=== PATIENT | male | born 1990 | race American Indian/Alaskan Native ===

== ENCOUNTER 2020-06-13 00:05 | Emergency (ER) | payer SELFPAY | END 2020-06-13 00:30 | disposition left against medical advice (07) | LOC: ED 00:05 | DX: Z00.8 Encounter for other general examination (principal); Z53.21 Procedure and treatment not carried out due to patient leaving prior to being seen by health care provider ==

== ENCOUNTER 2020-09-26 23:38 | Emergency (ER) | payer SELFPAY ==
[2020-09-27] MEDS ORDERED: IPRATROPIUM 0.02% NEBU 2.5 ML IH ONE (01:04)
[2020-09-27] MEDS ORDERED: predniSONE 20 MG TAB PO ONE (01:04)
[2020-09-27] MEDS ORDERED: ALBUTEROL 2.5 MG/3 ML NEBU IH ONE (01:04)
[2020-09-27 01:06] VITALS: BP 145/77
--- NOTE | 2020-09-27 01:25 | Emergency Department Report ---
ED Shortness of Breath HPI - General Chief Complaint: Dyspnea/Respdistress Stated Complaint: ROYAL;ASTHMA Source: patient Mode of arrival: Ambulatory Limitations: No Limitations - History of Present Illness Initial Comments: Patient is a 29-year-old -[place] male with a history of asthma who presents to the ED with acute onset persistent shortness of breath for the last 6 hours, worse in the last 2 hours. Patient states that he was already at the airport about [place] when he started having shortness of breath because of asthma but did not have his inhaler him on hand since all his bronchodilators were already in his checked in luggage and therefore could not go to retrieve them. Patient states that he was then brought to the ED via EMS for evaluation bronchodilator treatment. Patient states that his current symptoms are typical of his chronic asthma attacks. Patient denies chest pain, dizziness, syncope, fever, chills, cough, abdominal pain, nausea and vomiting, sore throat, nasal and sinus congestion or headache. MD Complaint: shortness of breath, cough, "asthma attack" -: Sudden, hour(s) (6) Severity: moderate Pain Scale: 4 Quality: dull, other (Chest tightness) Consistency: intermittent Improves With: bronchodilators Worsens With: nothing Known History Of: asthma Context: allergen exposure Associated Symptoms: cough Treatments Prior to Arrival: none - Related Data Home Oxygen Therapy: No Previous Rx's Medication Instructions Recorded Last Taken Type ALBUTEROL NEB's [Proventil 0.083% 3 ml IH TID PRN #75 ml 09/27/20 Unknown Rx NEBS] Albuterol Sulfate [Proventil Hfa] 1 - 2 puff IH Q6H PRN #1 hfa.aer.ad 09/27/20 Unknown Rx Prednisone [predniSONE 10 mg 10 mg PO .TAPER #21 tab.ds.pk 09/27/20 Unknown Rx (6-Day Pack, 21 Tabs)] Allergies Allergy/AdvReac Type Severity Reaction Status Date / Time No Known Allergies Allergy Verified 09/27/20 01:06 ED Review of Systems ROS: Stated complaint: ROYAL;ASTHMA Other details as noted in HPI Constitutional: denies: chills, fever Eyes: denies: eye pain, eye discharge, vision change ENT: denies: ear pain, throat pain Respiratory: cough, shortness of breath, wheezing Cardiovascular: chest pain (Chest tightness). denies: palpitations Endocrine: no symptoms reported Gastrointestinal: denies: abdominal pain, nausea, diarrhea Genitourinary: denies: urgency, dysuria Musculoskeletal: denies: back pain, joint swelling, arthralgia Skin: denies: rash, lesions Neurological: denies: headache, weakness, paresthesias Psychiatric: denies: anxiety, depression Hematological/Lymphatic: denies: easy bleeding, easy bruising ED Past Medical Hx - Past Medical History Previous Medical History?: Yes Hx Asthma: Yes - Surgical History Past Surgical History?: No - Medications Home Medications: Home Medications Medication Instructions Recorded Confirmed Last Taken Type ALBUTEROL NEB's [Proventil 0.083% 3 ml IH TID PRN #75 ml 09/27/20 Unknown Rx NEBS] Albuterol Sulfate [Proventil Hfa] 1 - 2 puff IH Q6H PRN #1 hfa.aer.ad 09/27/20 Unknown Rx Prednisone [predniSONE 10 mg 10 mg PO .TAPER #21 tab.ds.pk 09/27/20 Unknown Rx (6-Day Pack, 21 Tabs)] ED Physical Exam - General Limitations: No Limitations General appearance: alert, in no apparent distress - Head Head exam: Present: atraumatic, normocephalic, normal inspection - Eye Eye exam: Present: normal appearance, PERRL Pupils: Present: normal accommodation - ENT ENT exam: Present: normal exam, normal orophraynx, mucous membranes moist, TM's normal bilaterally, normal external ear exam - Neck Neck exam: Present: normal inspection, full ROM - Respiratory Respiratory exam: Present: wheezes (Mildly diffuse coarse wheezes throughout). Absent: respiratory distress, rales, rhonchi, stridor, chest wall tenderness, accessory muscle use, decreased breath sounds, prolonged expiratory - Cardiovascular Cardiovascular Exam: Present: regular rate, normal rhythm, normal heart sounds. Absent: systolic murmur, diastolic murmur, rubs, gallop - GI/Abdominal GI/Abdominal exam: Present: soft, normal bowel sounds. Absent: tenderness, guarding, hyperactive bowel sounds, hypoactive bowel sounds, organomegaly - Rectal Rectal exam: Present: deferred - Extremities Exam Extremities exam: Present: normal inspection, full ROM, normal capillary refill. Absent: pedal edema, calf tenderness - Back Exam Back exam: Present: normal inspection, full ROM. Absent: tenderness, CVA tenderness (R), CVA tenderness (L), muscle spasm, paraspinal tenderness - Neurological Exam Neurological exam: Present: alert, oriented X3, CN II-XII intact, normal gait, reflexes normal - Psychiatric Psychiatric exam: Present: normal affect, normal mood - Skin Skin exam: Present: warm, dry, intact, normal color. Absent: rash ED Course Vital Signs 09/27/20 01:02 Temperature 97.8 F Pulse Rate 79 Respiratory 17 Rate Blood Pressure 145/77 O2 Sat by Pulse 98 Oximetry ED Medical Decision Making - Medical Decision Making This is a 29-year-old -[place] male with a history of asthma who presents to the ED with acute onset persistent shortness of breath for the last 6 hours, worse in the last 2 hours. Patient states that he was already at the airport about to travel when he started having shortness of breath because of asthma but did not have his inhaler him on hand since all his bronchodilators were already in his checked in luggage and therefore could not go to retrieve them. Patient states that he was then brought to the ED via EMS for evaluation bronchodilator treatment. Patient states that his current symptoms are typical of his chronic asthma attacks. In the ED, patient is alert and oriented x3 and is not in any distress. Patient was treated in the ED with DuoNeb and also given prednisone 60 mg p.o. x1 in the ED. On reevaluation, patient's wheezing resolved with medication, patient's oxygen saturation after the nebulizer treatment was 99% in room air. Patient was therefore discharged home on prescriptions of prednisone and albuterol inhaler and was advised to return to the ED immediately if symptoms get worse, otherwise follow-up with his primary care physician in 5 to 7 days for reevaluation. - Differential Diagnosis Asthma; bronchitis; URI; allergic rhinitis Critical care attestation.: If time is entered above; I have spent that time in minutes in the direct care of this critically ill patient, excluding procedure time. ED Disposition Clinical Impression: Acute bronchitis with asthma with acute exacerbation, Shortness of breath Disposition: TO HOME OR SELFCARE Is pt being admited?: No Does the pt Need Aspirin: No Condition: Stable Instructions: Shortness of Breath, Adult, [id number], Cough, Adult, [id number], Acute Bronchitis, Adult, [id number], Asthma, Adult, [id number], Acute Bronchitis (ED) Additional Instructions: Take medication as advised, plenty of fluids and follow-up with your primary care physician in 3 to 5 days for reevaluation. Return to the ED immediately if symptoms get worse. Prescriptions: Prednisone [predniSONE 10 mg (6-Day Pack, 21 Tabs)] 10 mg PO .TAPER #21 tab.ds.pk ALBUTEROL NEB's [Proventil 0.083% NEBS] 3 ml IH TID PRN #75 ml PRN Reason: Wheezing Albuterol Sulfate [Proventil Hfa] 1 - 2 puff IH Q6H PRN #1 hfa.aer.ad PRN Reason: Wheezing Referrals: [facility] [Provider Group] - 3-5 Days Time of Disposition: 01:23 Print Language: VENEZUELAN
== END 2020-09-27 01:37 | disposition home or self-care (01) ==
LOC: ED 23:38
DX: J20.9 Acute bronchitis, unspecified (principal); R06.02 Shortness of breath; Z79.899 Other long term (current) drug therapy
CPT/HCPCS: 94640; 99282; J7512

== ENCOUNTER 2021-05-04 11:27 | Emergency (ER) | payer SELFPAY ==
--- NOTE | 2021-05-04 11:52 | Emergency Department Report ---
HPI - General Chief Complaint: Adult Asthma Time Seen by Provider: 05/04/21 11:43 - HPI HPI: 30-year-old -[place] male presents to the emergency department for a medication refill. The patient ran out of his asthma medications including Proventil and albuterol nebulizer meds. He admits to some occasional shortness of breath and wheezing. The patient just came here after going to the gym. He denies any fever, chest pain, lower extremity swelling. He does not have a primary care physician. He denies tobacco or any illicit drug use. ED Past Medical Hx - Past Medical History Hx Asthma: Yes - Medications Home Medications: Home Medications Medication Instructions Recorded Confirmed Last Taken Type Prednisone [predniSONE 10 mg 10 mg PO .TAPER #21 tab.ds.pk 09/27/20 Unknown Rx (6-Day Pack, 21 Tabs)] ALBUTEROL NEB's [Proventil 0.083% 3 ml IH TID PRN #1 box 05/04/21 Unknown Rx NEBS] Albuterol Sulfate [Proventil Hfa] 1 - 2 puff IH Q6H PRN #1 hfa.aer.ad 05/04/21 Unknown Rx predniSONE [Deltasone] 20 mg PO QDAY #3 tab 05/04/21 Unknown Rx ED Review of Systems ROS: Stated complaint: ASTHMA FLAIR Other details as noted in HPI Comment: All other systems reviewed and negative Constitutional: denies: chills, fever Respiratory: shortness of breath (Intermittent), wheezing Cardiovascular: denies: chest pain, palpitations Gastrointestinal: denies: abdominal pain, vomiting Musculoskeletal: denies: back pain, arthralgia Physical Exam - Physical Exam Physical Exam: GENERAL: The patient is well-developed well-nourished. HENT: Normocephalic. Atraumatic. Patient has moist mucous membranes. EYES: Extraocular motions are intact. NECK: Supple. Trachea is midline. CHEST/LUNGS: Clear to auscultation. Mild expiratory wheezing. No tachypnea or accessory muscle use. HEART/CARDIOVASCULAR: Regular. There is no tachycardia. There is no murmur. ABDOMEN: Abdomen is soft, nontender. Patient has normal bowel sounds. SKIN: Skin is warm and dry. NEURO: The patient is awake, alert, and oriented. The patient is cooperative. Normal speech. MUSCULOSKELETAL: There is no tenderness or deformity. ED Medical Decision Making - Medical Decision Making This patient presents for a medication refill of his albuterol inhaler nebulizer treatments. He also asked for a course of steroids. He has some mild expiratory wheezing but otherwise does not appear in any respiratory or acute distress. Vital signs reassuring including being afebrile. The patient has been given the requested prescriptions and instructed follow-up with primary care. Critical Care Time: No Critical care attestation.: If time is entered above; I have spent that time in minutes in the direct care of this critically ill patient, excluding procedure time. ED Disposition Clinical Impression: Medication refill Asthma Qualifiers: Asthma severity: unspecified severity Asthma persistence: unspecified Asthma complication type: unspecified Qualified Code(s): J45.909 - Unspecified asthma, uncomplicated Disposition: HOME / SELF CARE / HOMELESS Is pt being admited?: No Condition: Stable Instructions: Asthma, Adult, Asthma (ED) Additional Instructions: Please follow-up with a primary care physician in the next few days. I have given you a referral for a local primary care physician, Dr. Garcia, and a primary care clinic, [facility]. Return to the emergency department with any worsening of your symptoms, new or concerning symptoms not addressed during this current emergency department visit, or with any acute distress. Prescriptions: predniSONE [Deltasone] 20 mg PO QDAY #3 tab ALBUTEROL NEB's [Proventil 0.083% NEBS] 3 ml IH TID PRN #1 box PRN Reason: Wheezing Albuterol Sulfate [Proventil Hfa] 1 - 2 puff IH Q6H PRN #1 hfa.aer.ad PRN Reason: Wheezing Referrals: JOAN GARCIA MD [Staff Physician] - 3-5 Days [facility] [Provider Group] - 3-5 Days Time of Disposition: 11:53
[2021-05-04 12:11] VITALS: BP 113/74
== END 2021-05-05 05:38 | disposition home or self-care (01) ==
LOC: ED 11:27
DX: J45.909 Unspecified asthma, uncomplicated (principal); Z76.0 Encounter for issue of repeat prescription
CPT/HCPCS: 99281